=== PATIENT | male | born 1985 | race Caucasian/White ===

== ENCOUNTER 2024-03-04 11:37 | Emergency (ER) | payer SELFPAY ==
[2024-03-04 11:50] VITALS: BP 171/116
[2024-03-04 12:16] VITALS: BMI 37.0
[2024-03-04 12:29] LABS: % Basophils 0.4 % (0-2); % Eosinophils 1.6 % (0-6); % Immature Granulocytes 0.7 % (0-0.5); % Lymphocytes 15.4 % (20.5-51.1); % Monocytes 11.6 % (1.7-9.3); % Neutrophils 70.3 % (42.2-75.2); Absolute Eosinophils 0.1 10^3/uL (0-0.7); Absolute Immature Granulocytes 0.1 10^3/uL (0-0.05); Absolute Lymphocytes 1.3 10^3/uL (1.2-3.4); Absolute Neutrophils 5.9 10^3/uL (1.4-6.5); Hematocrit 46.4 % (39.0-52.0); Hemoglobin 16.3 g/dL (13.0-18.0); Mean Corp Hgb Conc. 35.1 g/dL (33.0-37.0); Mean Corpuscular Hgb 31.3 pg (27.0-31.0); Mean Corpuscular Volume 89.2 fL (80.0-94.0); Mean Platelet Volume 10.1 fL (7.4-10.4); Nucleated Red Blood Cells % 0 % (-); Platelet Count 221 10^3/uL (130-400); Red Cell Dist. Width 14.2 % (11.5-14.5); White Blood Cell Count 8.3 10^3/uL (4.8-10.8)
[2024-03-04 12:40] LABS: ALT (SGPT) 37 U/L (0-50); AST (SGOT) 49 U/L (17-59); Alkaline Phosphatase 62 U/L (38-126); Blood Urea Nitrogen 17 mg/dl (9-20); Calcium 10.1 mg/dl (8.4-10.2); Carbon Dioxide 25 mmol/L (22-30); Chloride 100 mmol/L (98-107); Estimated Creatinine Clearance > 125 ml/min; Glucose 136 mg/dl (70-99); Potassium 4.2 mmol/L (3.5-5.1); Sodium 140 mmol/L (135-145); Total Protein 7.7 g/dl (6.3-8.2); eGFR > 60.00
[2024-03-04 12:51] LABS: Troponin I 0.017 ng/ml
--- NOTE | 2024-03-04 13:05 | ED.GENMED ---
History of Present Illness
General
Chief Complaint: Chest Pain
Source: patient
Time Seen by Provider: 03/04/24 12:54
History of Present Illness
History of Present Illness:
38yoM with no significant past medical history presenting for evaluation of chest pain. Patient has been having a tingling and burning sensation to his lower gumline over the past several weeks. He was seen by his dentist 2 weeks ago and was told
that he had dental decay. He has a scaling procedure scheduled 2 days from now. Patient started to experience chest discomfort about a week ago. The pain was initially generalized throughout the chest but is now localized to the right chest.
Pain is described as a burning sensation. Nothing seems to make the pain better or worse. Pain has been constant since it began. He also reports shortness of breath that began today particularly with activity or if he lays flat. Patient is
concerned that he may have a tooth infection that has spread to his chest. He denies any fevers or chills. Of note, patient stopped drinking alcohol 3 days ago. He denies any withdrawal symptoms at this time. No personal or family history of heart
disease. No tobacco use.
Past History
Past History
ED Past Medical History: None
ED Past Surgical History: Other (General surgery)
Social History
Tobacco: Former smoker
Alcohol: Daily
Drug: None
Personal: Other (engaged)
Living: with family
Employment: Employed
Phy Exam
General Physical Exam
General Presentation: well appearing
General age: appears stated age
General Skin: warm and dry
General Habitus: normal
General Mental: alert
General Hydration: appears well hydrated
ENT Exam
ENT Exam: other (Poor dentition with plaque buildup. No dental abscess or elevation of floor of mouth. )
Cardiovascular Exam
Cardiovascular Exam: regular rate/rhythm, no edema and no murmur
Pulmonary Exam
Pulmonary Exam: lungs clear, no respiratory distress, no crackles and no wheezing
Neurological Exam
Neurological Exam: alert
Skin Exam
Skin Exam: warm/dry
Psychiatric Exam
Psychiatric Exam: normal mood/affect
Scores
Heart Score for Chest Pain Patients
STEMI patient?: Not applicable
Course
Orders/Labs/Results
Orders:
Orders
03/04/24
ECG [Electrocardiogram (*1)] Urgent
Reason for Study: Chest Pain
03/04/24 12:14
Complete Blood Count/With Diff Urgent
Comprehensive Metabolic Panel Urgent
Troponin I Urgent
03/04/24 13:08
Cardiac Monitoring- Treatment ONCE
EKG- Treatment ONCE
CR Chest - 2 Views Urgent
Comment:
Reason For Exam: CP, SOB
03/04/24 15:15
Electrocardiogram (*1) Urgent
Reason for Study: Chest Pain
03/04/24 15:20
Troponin I Urgent
Abnormal Lab Results
03/04/24
12:14
MCH 31.3 H pg
(27.0-31.0)
Abs Immat Gran (auto) 0.1 H 10^3/uL
(0-0.05)
Absolute Monos (auto) 1.0 H 10^3/uL
(0.1-0.6)
Immature Gran % 0.7 H %
(0-0.5)
Lymphocytes % 15.4 L %
(20.5-51.1)
Monocytes % 11.6 H %
(1.7-9.3)
Glucose 136 H mg/dl
(70-99)
03/04/24 12:14
03/04/24 12:14
Vital Signs
Initial and Last Documented VS:
Initial Vital Signs
Temp Pulse Resp BP Pulse Ox
99.3 F 99 18 171/116 94
03/04/24 11:50 03/04/24 11:50 03/04/24 11:50 03/04/24 11:50 03/04/24 11:50
Last Documented Vital Signs
Temp Pulse Resp BP Pulse Ox
99.3 F 80 24 171/116 94
03/04/24 11:50 03/04/24 14:53 03/04/24 14:53 03/04/24 11:50 03/04/24 14:53
MDM/Problems Addressed
Differential Diagnosis Includes:
38yoM here with chest pain x 1 week. R sided burning pain. Nothing makes it better or worse. New SOB today. Also has lower dental discomfort x 1 month. No fevers. He is hypertensive with otherwise normal vitals. He is well appearing in no distress.
Differential diagnosis includes but is not limited to: pneumonia, pneumothorax, pleural effusion, ACS, doubt PE
Initial ED plan: Check cardiac labs, EKG, and CXR.
*EKG
Interpreted by ED Provider?: Yes
EKG Intrepretation Date: 03/04/24
EKG Intrepretation Time: 13:09
Heart Rate: 85
Rate: normal
Rhythm: sinus
[place]: normal axis
Interval: normal interval
QRS Pattern: normal QRS
Ischemia: no ischemia
*Critical Care Note
Total Time (30-74mins, 75-104mins- exclusive of procedures): Not Applicable
Update Note
Update Note:
While waiting for lab results, nursing informed me that patient is reporting a boil in his groin region. Upon reassessment, patient reports recurrent boils for several years which leave scars. His current boil is resolving but wanted me to take a
look. No fluctuance or drainage on exam. Multiple scars noted from prior boils. Discussed possibility of HS with patient. Will refer him to dermatology as an outpatient.
Labs unremarkable including normal white count. EKG shows NSR without ischemic changes and troponin WNL. CXR appears clear. Delta troponin/EKG unchanged. No indication for admission. Will start on a course of clindamycin to cover for a dental
infection as well as the skin boil present in his groin. Advised f/u with PCP and cardiology. ED return precautions discussed. He expressed understanding and is agreeable to plan. Patient discharged in stable condition.
ED Attending Note
-
Portions of this chart may have been created with voice recognition software.� Occasional wrong word or��sound alike� substitutions may have occurred due to the inherent limitations of voice recognition software.
Discharge Plan
Departure
Patient Disposition: Home (Routine Discharge)
Date of Disposition: 03/04/24
Time of Disposition: 16:26
Patient with high blood pressure during this ER visit?: Yes
Discharge Problem:
Chest pain, Dental infection
Instructions: Chest Pain CBC Follow Up
Prescriptions:
New
clindamycin HCl 300 mg capsule
300 mg PO Q6H 7 Days Qty: 28 0RF
Referrals:
Jose Lan DO [Family Provider] -
Tyron Garcia MD [Active] -
Gagan Villasenor MD [Consulting Staff] -
Activity Restrictions/Additional Instructions:
Take antibiotics as prescribed.
Please follow-up with your family doctor, cardiology, and dermatology. Return to the ER with any new or worsening symptoms.
Interventions
Interventions:
*Risk Screen - Suicide Last Done: 03/04/24 11:52
*General Assessment Last Done: 03/04/24 11:52
*Neglect/Abuse Screening Last Done: 03/04/24 11:52
ED- Fall Risk Assessment Last Done: 03/04/24 12:23
*Nursing Disposition Last Done: 03/04/24 17:09
ED- Cardiac Assessment Last Done: 03/04/24 12:23
Discharge Date and Time
Discharge Date/Time: 03/04/24 17:09
Print Language: MACEDONIAN
[2024-03-04 15:51] LABS: Troponin I 0.019 ng/ml
== END 2024-03-04 17:09 | disposition home or self-care (01) ==
LOC: EMR 11:37
PROVIDERS: Physician Assistant; EMERGENCY PHYSICIAN Emergency Medicine; FAMILY PHYSICIAN Family Medicine
DX: R07.89 Other chest pain (principal); K04.7 Periapical abscess without sinus; Z87.891 Personal history of nicotine dependence
CPT/HCPCS: 99283; 71046; 80053; 84484; 85025; 93005